=== PATIENT | female | born 1975 | race Caucasian/White ===

== ENCOUNTER 2022-04-10 09:48 | Emergency (ER) | payer BC ==
[~2022-04-10] VITALS: Ht 157.5 cm; Wt 61.2 kg
[2022-04-10 10:06] VITALS: BP 130/69
--- NOTE | 2022-04-10 10:48 | NUR ---
DR. JOLLY EVALUATING PATIENT AT BEDSIDE.
--- NOTE | 2022-04-10 10:50 | NUR ---
PT LAYING IN BED WITH C/O HEAD PAIN S/P INJURY IN SHOWER. PT DENIES ANY K.O. WILL CONTINUE TO MONITOR
[2022-04-10] MEDS ORDERED: MECL-303 PO (13:10)
[2022-04-10 13:37] VITALS: BP 129/79
--- NOTE | 2022-04-10 13:38 | NUR ---
Patient discharged with v/s stable. Written and verbal after care instructions given and explained. Patient verbalized understanding. Ambulatory with steady gait. All questions addressed prior to discharge. Advised to follow up with PMD.
== END 2022-04-10 13:37 | disposition home or self-care (01) ==
LOC: MED 09:48
DX: S06.0X0A Concussion without loss of consciousness, initial encounter (principal); W18.30XA Fall on same level, unspecified, initial encounter; Y93.89 Activity, other specified; Y92.89 Other specified places as the place of occurrence of the external cause; Y99.8 Other external cause status
CPT/HCPCS: 70450; 81025; 93005; 99284